=== PATIENT | male | born 1950 | race Two or more races ===

== ENCOUNTER → 2023-07-19 | Emergency (ER) | payer OTHER ==
[~2023-07-19] VITALS: Ht 172.7 cm; Wt 90.7 kg
[~2023-07-19] MED LIST: ATACAND4 MG; ATORVASTATIN CA40 MG; CHILDREN'S ASPI81 MG; GLUMETZA500 MG; TOPROL XL25 M1
== END | disposition home or self-care (01) ==
LOC: ER 12:11
DX: M25.531 Pain in right wrist (principal); M10.9 Gout, unspecified; I25.10 Atherosclerotic heart disease of native coronary artery without angina pectoris; I10 Essential (primary) hypertension; R73.03 Prediabetes; E78.00 Pure hypercholesterolemia, unspecified
CPT/HCPCS: 73110; 96365; 96372; 99284; J1885

== ENCOUNTER 2023-09-06 11:50 | Emergency (ER) | payer OTHER ==
[~2023-09-06] VITALS: Ht 172.7 cm; Wt 89.4 kg
== END 2023-09-06 14:39 | disposition home or self-care (01) ==
LOC: ER 11:52
DX: K04.7 Periapical abscess without sinus (principal); E11.65 Type 2 diabetes mellitus with hyperglycemia; Z79.84 Long term (current) use of oral hypoglycemic drugs; I10 Essential (primary) hypertension

== ENCOUNTER 2023-11-05 14:28 | Outpatient (CLI) | payer OTHER | END 2023-11-05 14:41 | disposition home or self-care (01) | LOC: RAD 14:28 | PROVIDERS: ATTEND Orthopaedic Surgery | DX: M25.561 Pain in right knee (principal); M25.562 Pain in left knee ==

== ENCOUNTER 2024-06-23 12:25 | Emergency (ER) | payer OTHER ==
[~2024-06-23] VITALS: Ht 172.7 cm; Wt 95.3 kg
[2024-06-23 13:41] VITALS: BP 144/87; O2SAT 96
[2024-06-23] MEDS ORDERED: KETOROLAC TROMETHAMINE 30 MG VIAL IV ONE (15:45)
[2024-06-23 16:17] LABS: ERYTHROCYTE SEDIMENTATION RATE 23 mm/hr; HEMOGLOBIN 15.5 g/dL (13-16.00); MEAN CELL VOLUME 87.3 fL (80.0-100.00); MEAN CORPUSCULAR HEMOGLOBIN 30.2 pg (27.00-32.0); MEAN CORPUSCULAR HGB CONC 34.6 g/dl (32.0-36.0); PLATELET COUNT 310 K/uL (150-450); RED BLOOD COUNT 5.15 M/uL (4.00-6.00); RED CELL DISTRIBUTION WIDTH 13.8 % (11.5-14.5)
[2024-06-23 16:40] LABS: ALBUMIN 4.2 gm/dL (3.4-5.0); BILIRUBIN TOTAL 0.44 mg/dL (0.3-1.2); CALCIUM 9.6 mg/dL (8.5-10.1); CREATININE SERUM 1.01 mg/dL (0.70-1.30); GFR 72.41; GLOBULINA 3.6 G/DL (2.4-3.5); POTASSIUM 4.55 mEq/L (3.5-5.1); TOTAL PROTEIN 7.8 gm/dL (6.4-8.2); URIC ACID 6.5 mg/dL (3.5-8.5)
== END 2024-06-23 16:53 | disposition left against medical advice (07) ==
LOC: ER 12:27
PROVIDERS: Nurse Practitioner Family
DX: M25.571 Pain in right ankle and joints of right foot (principal); E11.9 Type 2 diabetes mellitus without complications; Z79.84 Long term (current) use of oral hypoglycemic drugs; I10 Essential (primary) hypertension; G47.30 Sleep apnea, unspecified